=== PATIENT | female | born 1995 | race Two or more races ===

== ENCOUNTER 2025-06-11 07:20 | Day surgery (SDC) | payer MEDICAID, SELFPAY ==
[2025-06-10 11:59] LABS: HCG Qualitative,Urine Negative
[2025-06-10 15:20] VITALS: BMI 34.9
[2025-06-11] VITALS (9 sets, daily range): BP systolic 112–152; BP diastolic 57–111; PULSE 58–107; RESP 12–30; TEMP 36.3–36.5; O2SAT 96–100; BMI 35.6
[2025-06-11] MEDS: SODIUM CHLORIDE 0.9% 500 ML 500 ML 125 ML IV (08:44)
[2025-06-11] MEDS: SIMETHICONE 40 MG/0.6 ML ORAL SYRINGE PO (08:48)
[2025-06-11] MEDS: MIDAZOLAM INJ 1 MG/ML VIAL 2 ML (ASD USE ONLY) 2 MG IVP (08:49)
[2025-06-11] MEDS: fentaNYL CIT INJ 50 mCg/ML AMP 2ML (ASD USE ONLY) IVP (08:51)
== END 2025-06-11 09:30 | disposition home or self-care (01) ==
PROVIDERS: PCP Family Medicine; Referring Provider Surgery; Visit Provider Surgery
PROC: 0DBE8ZX Excision of Large Intestine, Via Natural or Artificial Opening Endoscopic, Diagnostic (ICD-10-PCS; CPT 45380; principal; 2025-06-11 08:30)
DX: K62.5 Hemorrhage of anus and rectum (principal); K64.1 Second degree hemorrhoids; K64.4 Residual hemorrhoidal skin tags
CPT/HCPCS: 45378; 81025; A4649; J1200; J2250; J3010; J7999; A9270